=== PATIENT | female | born 1995 | race Caucasian/White ===

== ENCOUNTER 2016-10-17 09:45 | Emergency (ER) | payer OTHER ==
[2016-10-17 09:59] VITALS: BP 117/62; PULSE 100; RESP 18; TEMP 99; O2SAT 100
--- NOTE | 2016-10-17 11:20 | EDPHY ---
H & P Time Seen by Provider: 10/17/16 11:06 HPI/ROS: Chief complaint. Cough, chills, sore throat HPI. 21-year-old female with cough chills sore throat for 1 week. Gradually getting worse. No recent travel or known exposures. No vomiting or diarrhea. No chest discomfort or shortness of breath. No rash. ROS Constitutional. Fever and chills Eyes. no problems with vision ENT. Congestion and sore throat Cardiovascular. no chest pain Respiratory. Cough without shortness of breath Abdominal. no abdominal pain, no nausea/vomiting, no diarrhea . no problems urinating MS. no calf pain/swelling, no neck/back pain, no joint pain Skin. no rash Lymph. no swollen glands Neuro. no headache, no dizziness, no difficulty walking or with speech Past Medical/Surgical History: Healthy Social History: Single, nonsmoker, no alcohol Smoking Status: Never smoked Physical Exam: General Appearance: Alert pleasant well-developed female somewhat ill- appearing. Vital signs are stable Eyes: Pupils equal and round no pallor or injection. ENT, tympanic membranes are normal. Pharynx injected without exudate Respiratory: There are no retractions, lungs are clear to auscultation. Cardiovascular: Regular rate and rhythm. Gastrointestinal: Abdomen is soft and nontender, no masses, bowel sounds normal. Neurological: Awake and alert, sensory and motor exams grossly normal. Skin: Warm and dry, no rashes. Musculoskeletal: Neck is supple nontender. Extremities symmetrical, full range of motion. Psychiatric: Patient is oriented X 3, there is no agitation. Constitutional: Initial Vital Signs Temperature (C) 37.2 C 10/17/16 09:57 Heart Rate 100 10/17/16 09:57 Respiratory Rate 18 10/17/16 09:57 Blood Pressure 117/62 10/17/16 09:57 O2 Sat (%) 100 10/17/16 09:57 O2 Delivery Mode Room Air Allergies/Adverse Reactions: No Known Allergies Allergy (Unverified 10/17/16 09:57) Home Medications: Medication Instructions Recorded Azithromycin [Zithromax] 250 mg PO DAILY #6 tab 10/17/16 Benzonatate [Tessalon Pearles (RX)] 100 mg PO TID PRN #14 cap 10/17/16 Medical Decision Making ED Course/Re-evaluation: Rapid strep and flu are negative Patient is given ibuprofen. Patient and I discussed treatment plan including criteria for return importance of follow-up further evaluation. She expresses understanding and agreement Differential Diagnosis: I believe this is viral syndrome. I considered considered influenza, strep pharyngitis, pneumonia - Data Points Laboratory Results: 10/17/16 10/17/16 Unknown 09:58 Influenza Typ A,B (DFA) NEGATIVE FOR FLU (NEGATIVE) Group A Strep Screen NEGATIVE (NEGATIVE) Group A Strep DNA Pending Departure - Departure Disposition: Home, Routine, Self-Care Clinical Impression: Viral syndrome Condition: Good Instructions: Fever in Adults (ED) Additional Instructions: Drink plenty of fluids and stay hydrated. Ibuprofen 600 mg every 6 hours for fever and achiness. Zithromax is antibiotic. Tessalon Perlmaicol for cough. Return for worsening symptoms. Recheck in 2-3 days if not improving [place]errals: [place],. [Primary Care Provider] - As per Instructions Cristiano Pete MD [Medical Doctor] - 2-3 days, if not improved Prescriptions: Benzonatate [Tessalon Pearles (RX)] 100 mg PO TID PRN #14 cap PRN Reason: Cough, Moderate Azithromycin [Zithromax] 250 mg PO DAILY #6 tab
== END 2016-10-17 11:37 | disposition home or self-care (01) ==
LOC: CED 09:45
DX: B34.9 Viral infection, unspecified (principal)
CPT/HCPCS: 87400-PO; 87880-PO; G0463-PO